=== PATIENT | male | born 1975 | race Caucasian/White ===

== ENCOUNTER 2018-01-30 21:17 | Emergency (ER) | payer OTHER ==
[~2018-01-30] VITALS: Ht 180.3 cm; Wt 82.6 kg
[2018-01-31] MEDS ORDERED: INTESTINEX680 M1 PO (04:30)
[2018-01-31] MEDS ORDERED: PROTONIX20 MG PO (04:30)
== END 2018-01-31 04:46 | disposition home or self-care (01) ==
LOC: ER 21:17
DX: K52.9 Noninfective gastroenteritis and colitis, unspecified (principal)

== ENCOUNTER 2020-09-25 03:52 | Emergency (ER) | payer OTHER ==
[~2020-09-25] VITALS: Ht 180.3 cm; Wt 81.6 kg
[~2020-09-25 03:52] MED LIST: INTESTINEX680 M1 PO; PROTONIX20 MG PO
== END 2020-09-25 06:23 | disposition home or self-care (01) ==
LOC: ER 03:52
DX: M25.512 Pain in left shoulder (principal)